=== PATIENT | female | born 1975 | race Two or more races ===

== ENCOUNTER 2024-04-20 19:14 | Emergency (ER) | payer MEDICAID, OTHER ==
[~2024-04-20] VITALS: Ht 165.1 cm; Wt 86.2 kg
[2024-04-20] MEDS ORDERED: OLANZAPINE 5 MG TABLET ONE (19:44)
[2024-04-20] MEDS ORDERED: ONDANSETRON 4 MG TAB.RAPDIS ONE (19:44)
[2024-04-20] MEDS: ONDANSETRON 4 MG TAB.RAPDIS SL ONE (19:46)
[2024-04-20] MEDS: OLANZAPINE ZYDIS 5 MG TAB.RAPDIS PO ONE (19:46)
[2024-04-20] MEDS ORDERED: NALO4SPR BNOSTRILS (21:38)
[2024-04-20 23:41] VITALS: BP 128/88; TEMP 97.8; O2SAT 95
== END 2024-04-20 23:42 | disposition home or self-care (01) ==
LOC: ER 19:16
DX: T40.2X1A Poisoning by other opioids, accidental (unintentional), initial encounter (principal); I10 Essential (primary) hypertension; R11.0 Nausea; R45.1 Restlessness and agitation; Z59.00 Homelessness unspecified; Y92.89 Other specified places as the place of occurrence of the external cause
CPT/HCPCS: 99283; Q0162